=== PATIENT | male | born 1990 | race Caucasian/White ===

== ENCOUNTER 2017-01-23 19:52 | Emergency (ER) | payer BC ==
[~2017-01-23] VITALS: Ht 170.2 cm; Wt 81.6 kg
[2017-01-23 20:40] VITALS: BP_SYST 146
== END 2017-01-23 23:01 | disposition left against medical advice (07) ==
LOC: SED 19:52
DX: R42 Dizziness and giddiness (principal); Z53.21 Procedure and treatment not carried out due to patient leaving prior to being seen by health care provider